=== PATIENT | female | born 1970 | race Caucasian/White ===

== ENCOUNTER 2019-04-07 17:20 | Emergency (ER) | payer OTHER ==
[~2019-04-07] VITALS: Ht 154.9 cm; Wt 54.9 kg
[2019-04-07] MEDS ORDERED: HYDROCHLOROTHIA25 MG (17:46)
[2019-04-07] MEDS ORDERED: NORVASC5 MG (17:47)
[2019-04-07] MEDS ORDERED: ACCUPRIL40 MG (17:47)
== END 2019-04-07 21:33 | disposition home or self-care (01) ==
LOC: ER 17:20
DX: S92.811A Other fracture of right foot, initial encounter for closed fracture (principal); Y93.01 Activity, walking, marching and hiking; Y99.8 Other external cause status; Y93.89 Activity, other specified; Y92.89 Other specified places as the place of occurrence of the external cause